=== PATIENT | female | born 1980 | race Caucasian/White ===

== ENCOUNTER 2018-05-16 15:17 | Emergency (ER) | payer OTHER ==
[2018-05-16 15:17] VITALS: BMI 23.1
[2018-05-16 15:25] VITALS: BP 147/79; TEMP 101.1
--- NOTE | 2018-05-16 18:23 | ED.PDOC ---
General <MAXIMO ANGELES - Last Filed: 05/16/18 20:08> Stated Complaint: p[atient states that her back is hurting,,unsure of her UTI, fever, Time Seen by Physician: 18:22 Mode of Arrival: Walk-In Information Source: Patient Exam Limitations: No limitations Nursing and Triage Documentation Reviewed and Agree: Yes Does patient meet sepsis criteria?: No System Inflammatory Response Syndrome: Not Applicable <AMY URRUTIA - Last Filed: 05/23/18 03:50> ED Provider: Dr. AMY URRUTIA Chief Complaint: Back Pain Primary Care Provider: TATIANA SIMONS Sepsis Protocol: For patient's 13 years and over: Temp is 96.8 and below OR 101 and greater Pulse >90 BPM Resp >20/minute Acutely Altered Mental Status Are patient's symptoms suggestive of a new infection, such as: -Pneumonia -Skin, Soft Tissue -Endocarditis -UTI -Bone, Joint Infection -Implantable Device -Acute Abdominal Infection -Wound Infection -Meningitis -Blood Stream Catheter Infection -Unknown Complaint Exam - UTI Female Complaint/Exam Onset/Duration: few days,unsure Symptoms Are: Still present Timing: Constant Initial Severity: Mild Current Severity: Moderate Location of Pain: Reports: Right, Flank, Diffuse, Radiating Associated Signs and Symptoms: Reports: Fever, Flank pain Related History: Reports: Similar episode Related Surgical History: Reports: None CVA Tenderness: Yes Suprapubic Tenderness: Yes <AMY URRUTIA - Last Filed: 05/23/18 03:50> Review of Systems - Review Of Systems Constitutional: Reports: Fever, Weakness Eyes: Reports: No symptoms Ears, Nose, Mouth, Throat: Reports: No symptoms Respiratory: Reports: No symptoms Cardiac: Reports: No symptoms GI: Reports: No symptoms : Reports: No symptoms Musculoskeletal: Reports: Back pain, Muscle pain Neurological: Reports: No symptoms Endocrine: Reports: No symptoms Hematologic/Lymphatic: Reports: No symptoms All Other Systems: Reviewed and Negative <AMY URRUTIA - Last Filed: 05/23/18 03:50> Past Medical History - Past Medical History Previously Healthy: Yes Endocrine: Reports: Unknown Cardiovascular: Reports: None, Unknown Respiratory: Reports: None Hematological: Reports: None Gastrointestinal: Reports: None Genitourinary: Reports: UTI Neuro/Psych: Reports: None Musculoskeletal: Reports: Back Pain Cancer: Reports: None Last Menstrual Period: 3 weeks ago - Surgical History General Surgical History: Reports: None - Family History Family History: Reports: None - Social History Smoking Status: Current every day smoker, Light tobacco smoker Hx Substance Use: No Alcohol Screening: Occasionally - Immunizations Tetanus Shot up to Date: Yes <AMY URRUTIA - Last Filed: 05/23/18 03:50> Physical Exam - Physical Exam Appearance: Ill-appearing Ill-appearing: Moderate Pain Distress: Mild Eyes: LINDA ENT: Ears normal Neck: Supple Respiratory: Airway patent Cardiovascular: RRR GI/: Soft Musculoskeletal: Normal strength Skin: Warm Neurological: Sensation intact <AMY URRUTIA - Last Filed: 05/23/18 03:50> Critical Care Note - Critical Care Note Total Time (mins): 0 <AMY URRUTIA - Last Filed: 05/23/18 03:50> Course - Course Hematology/Chemistry: 05/16/18 18:37 05/16/18 18:37 <MAXIMO ANGELES - Last Filed: 05/16/18 20:08> - Course Hematology/Chemistry: 05/16/18 18:37 05/16/18 18:37 <AMY URRUTIA - Last Filed: 05/23/18 03:50> - Course Orders, Labs, Meds: Lab Review 05/16/18 05/16/18 05/16/18 16:22 18:37 18:37 WBC 16.15 H RBC 4.71 Hgb 14.4 Hct 43.3 MCV 91.9 MCH 30.6 MCHC 33.3 RDW Coeff of Lyn[place] 11.1 L Plt Count 235 Immature Gran % (Auto) 0.4 Neut % (Auto) 77.6 Lymph % (Auto) 11.6 [place] % (Auto) 10.2 H Eos % (Auto) 0.1 Baso % (Auto) 0.1 Immature Gran # (Auto) 0.1 Neut # (Auto) 12.5 H Lymph # (Auto) 1.9 [place] # (Auto) 1.7 Eos # (Auto) 0.0 Baso # (Auto) 0.0 Sodium 134.1 L Potassium 4.56 Chloride 100.0 Carbon Dioxide 25.6 Anion Gap 13.06 BUN 9.1 Creatinine 0.62 Estimated GFR (MDRD) 108.00 BUN/Creatinine Ratio 14.67 Glucose 99.8 Calcium 9.12 Total Bilirubin 0.60 AST 18.9 ALT 8.2 Alkaline Phosphatase 92.8 Total Protein 7.62 Albumin 4.19 Globulin 3.43 Albumin/Globulin Ratio 1.22 Urine Color Yellow Urine Clarity Clear Urine pH 5.5 Ur Specific [place] 1.020 Urine Protein Negative Urine Glucose (UA) Negative Urine Ketones 1+ Urine Blood Negative Urine Nitrite Negative Urine Bilirubin Negative Urine Urobilinogen 0.2 Ur Leukocyte Esterase 1+ Urine Microscopic WBC 30-50 Ur Squamous Epith Cells Not present Urine Bacteria 1+ Urine Mucus 2+ Orders Category Date Time Status IV [ED IV/MEDIPORT/POWERPORT] .ONCE EMERGENCY 05/16/18 18:28 Active CBC W/ AUTO DIFF Stat LAB 05/16/18 18:37 Completed COMPREHENSIVE METABOLIC PANEL Stat LAB 05/16/18 18:37 Completed URINALYSIS C & S IF INDICATED Stat LAB 05/16/18 16:22 Completed URINE CULTURE Stat LAB 05/16/18 16:22 Completed 0.9 % Sodium Chloride [Saline Flush] MEDS 05/16/18 18:28 Discontinued 1 syr IVF PRN PRN Acetaminophen [Tylenol] MEDS 05/16/18 18:32 Discontinued 650 mg PO ONCE STA Ceftriaxone Sodium [Rocephin] MEDS 05/16/18 18:47 Discontinued 500 mg .ROUTE .STK-MED ONE Ceftriaxone Sodium [Rocephin] 500 mg MEDS 05/16/18 18:29 Discontinued 0.9 % Sodium Chloride [Sodium Chloride] 50 ml IV ONCE Sodium Chloride 0.9% [Sodium Chloride] 1,000 ml MEDS 05/16/18 18:29 Discontinued IV BOLUS Medications Discontinued Medications Generic Name Dose Route Start Last Admin Trade Name Freq PRN Reason Stop Dose Admin Acetaminophen 650 mg 05/16/18 18:32 05/16/18 18:53 Tylenol PO 05/16/18 18:33 650 mg ONCE STA Administration Sodium Chloride 1,000 mls @ 1,000 mls/hr 05/16/18 18:29 05/16/18 18:52 Sodium Chloride IV 05/16/18 19:28 1,000 mls/hr BOLUS STA Administration Ceftriaxone Sodium 500 mg/ 50 mls @ 75 mls/hr 05/16/18 18:29 05/16/18 18:52 Sodium Chloride IV 05/16/18 19:08 75 mls/hr ONCE STA Administration Sodium Chloride 1 syr 05/16/18 18:28 Saline Flush IVF PRN PRN To flush IV Vital Signs: Temp Pulse Resp BP Pulse Ox 05/16/18 15:17 101.1 F H 107 H 20 147/79 H 98 Departure - Departure Time of Disposition: 20:08 Pt referred to PMD for follow-up: Yes IPMP verified?: No <MAXIMO ANGELES - Last Filed: 05/16/18 20:08> - Departure Disposition Discussed With: Patient <AMY URRUTIA - Last Filed: 05/23/18 03:50> - Departure Disposition: HOME SELF-CARE Discharge Problem: UTI (urinary tract infection) Qualifiers: Urinary tract infection type: acute pyelonephritis Qualified Code(s): N10 - Acute pyelonephritis Instructions: Urinary Tract Infection in Women (ED) Condition: Fair Additional Instructions: Take Medications as prescribed Follow up with PCP in 3-5 days Prescriptions: Hydrocodone Bit/Acetaminophen [[place] 5-325] 1 each PO Q6HR PRN #10 tablet PRN Reason: severe pain Levofloxacin [Levaquin] 500 mg PO DAILY #7 tablet Allergies/Adverse Reactions: Allergies No Known Allergies Allergy (Verified 05/16/18 15:26) Home Medications: Ambulatory Orders Hydrocodone Bit/Acetaminophen [[place] 5-325] 1 each PO Q6HR PRN #10 tablet Levofloxacin [Levaquin] 500 mg PO DAILY #7 tablet 05/16/18
[2018-05-16] MEDS: ROCEPHIN 500 MG in SODIUM CHLORIDE 50 ML IV STA (18:52)
[2018-05-16] MEDS: SODIUM CHLORIDE 1,000 ML IV STA (18:52)
[2018-05-16] MEDS: TYLENOL PO STA (18:53)
[2018-05-16] MEDS: ROCEPHIN ONE (18:57)
== END 2018-05-16 20:27 | disposition home or self-care (01) ==
LOC: ED 15:17
DX: N10 Acute pyelonephritis (principal); F17.210 Nicotine dependence, cigarettes, uncomplicated
CPT/HCPCS: 36415; 80053; 81001; 85025; 87086; 87186; 96361; 96365; 96366; 99283